=== PATIENT | male | born 1985 | race Caucasian/White ===

== ENCOUNTER 2018-07-24 07:58 | Emergency (ER) | payer OTHER ==
[~2018-07-24] VITALS: Ht 193 cm; Wt 97.5 kg
[~2018-07-24 07:58] MED LIST: AMOXICILLIN 50500 MG PO; CLEOCIN HCL150 MG PO; MEDROLDOSEPACK PO
[2018-07-24 08:30] LABS: ABSOLUTE EOSINOPHILS 0.1 thou/uL (0.0-0.7); ABSOLUTE LYMPHOCYTES 2.2 thou/uL (0.8-5.3); ABSOLUTE MONOCYTES 0.7 thou/uL (0.0-1.2); BASOPHILS 0.3 %; EOSINOPHILS 1.1 %; HEMATOCRIT 46.7 % (42.0-52.0); HEMOGLOBIN 15.7 gm/dL (14.0-18.0); LYMPHOCYTES 19.5 %; MCH 28.8 pg (26.0-34.0); MCHC 33.6 g/dL (28.0-37.0); MCV 85.5 fL (80.0-100.0); MONOCYTES 6.7 %; MPV 9.6 fl. (7.2-11.1); NUCLEATED RBCS 0 /100WBC; PLATELET COUNT* 209 thou/uL (150-400); POLYS 72.4 %; RBC 5.46 mil/uL (4.50-6.00); RDW-CV 13.3 % (10.5-14.5); WBC 11.1 thou/uL (4.0-11.0)
[2018-07-24 08:36] LABS: CALCIUM 9.1 mg/dL (8.5-10.1); CREATININE 0.9 mg/dL (0.6-1.3); POTASSIUM 3.8 mmol/L (3.5-5.1)
[2018-07-24 08:36] LABS: URINE BILIRUBIN NEGATIVE (Negative); URINE BLOOD NEGATIVE (Negative); URINE CLARITY CLEAR; URINE COLOR YELLOW; URINE GLUCOSE-RANDOM NEGATIVE (Negative); URINE KETONES NEGATIVE (Negative); URINE LEUKOCYTES-REFLEX NEGATIVE (Negative); URINE NITRITE-REFLEX NEGATIVE (Negative); URINE PROTEIN NEGATIVE (Negative); URINE SPECIFIC GRAVITY 1.025 (1.005-1.030); URINE UROBILINOGEN 0.2 E.U./dl (0.2-1.0)
[2018-07-24 08:41] LABS: TOTAL BILIRUBIN 0.4 mg/dL (<0.1-1.0); TOTAL PROTEIN 7.7 g/dL (6.4-8.2)
[2018-07-24 09:51] VITALS: BP 151/88
== END 2018-07-24 09:53 | disposition home or self-care (01) ==
LOC: M.ERS 07:58
PROVIDERS: Family Medicine
DX: R10.32 Left lower quadrant pain (principal); R11.2 Nausea with vomiting, unspecified; F17.210 Nicotine dependence, cigarettes, uncomplicated

== ENCOUNTER → 2021-10-03 | Emergency (ER) | payer OTHER ==
[~2021-10-03] VITALS: Ht 193 cm; Wt 102.1 kg
[~2021-10-03] MED LIST changes: +AMOXIL 875 MG875 M1 PO; +APAP W/CODEINE1 TA2 PO
[2021-10-03 19:28] VITALS: BP 145/70
== END ==
LOC: M.ERS 18:32
DX: K08.89 Other specified disorders of teeth and supporting structures (principal); K03.81 Cracked tooth; H92.01 Otalgia, right ear; F17.210 Nicotine dependence, cigarettes, uncomplicated; Z98.890 Other specified postprocedural states